=== PATIENT | male | born 2000 | race Caucasian/White ===

== ENCOUNTER 2024-03-02 16:50 | Inpatient (IN) | payer OTHER ==
[~2024-03-02] VITALS: Ht 172.7 cm; Wt 94.1 kg
[2024-03-02 18:07] LABS: HEMATOCRIT 43.8 % (42.0-52.0); HEMOGLOBIN 15.2 g/dl (13.5-17.5); MEAN CORPUSCULAR HEMOGLOBIN 32.5 pg (27.0-33.0); MEAN CORPUSCULAR HGB CONC 34.7 g/dl (32.0-36.5); MEAN CORPUSCULAR VOLUME 93.6 fl (80.0-96.0); PLATELET COUNT, AUTOMATED 271 10^3/uL (150-450); RED BLOOD COUNT 4.68 10^6/uL (4.30-6.10)
[2024-03-02 18:28] LABS: AMPHETAMINES LEVEL URINE NEGATIVE (NEGATIVE); BARBITURATES URINE NEGATIVE (NEGATIVE); BENZODIAZEPINES URINE NEGATIVE (NEGATIVE); CANNABINOIDS URINE NEGATIVE (NEGATIVE); COCAINE METABOLITE URINE NEGATIVE (NEGATIVE); METHADONE URINE NEGATIVE (NEGATIVE); OPIATES URINE NEGATIVE (NEGATIVE); PHENCYCLIDINE URINE NEGATIVE (NEGATIVE)
[2024-03-02 18:31] LABS: SALICYLATE LEVEL < 3.0 MG/DL (<30)
[2024-03-02 18:32] LABS: ALBUMIN 4.5 G/DL (3.2-5.2); ALKALINE PHOSPHATASE 61 U/L (46-116); ALT/SGPT 23 U/L (7.0-40); AST/SGOT 19 U/L (<34); BILIRUBIN,DIRECT 0.3 MG/DL (<0.4); BLOOD UREA NITROGEN 10 MG/DL (9-23); CALCIUM LEVEL 9.4 MG/DL (8.5-10.1); CARBON DIOXIDE LEVEL 27 MMOL/L (20-31); CHLORIDE LEVEL 107 MMOL/L (98-107); CREATININE FOR GFR 0.96 MG/DL (0.70-1.30); GLOMERULAR FILTRATION RATE > 60.0 (>60); GLUCOSE, FASTING 82 MG/DL (60-100); SODIUM LEVEL 141 MMOL/L (136-145)
[2024-03-02 18:33] LABS: THYROID STIMULATING HORMONE 0.931 uIU/ML (0.55-4.78)
[2024-03-02] MEDS ORDERED: HOME MED LIST COMPLETE! XX SCH (20:10)
[2024-03-03] MEDS ORDERED: ACETAMINOPHEN TAB 650MG DOSE (2X325MG) PO PRN (11:40)
[2024-03-03] MEDS ORDERED: MAALOX 30 ML SUSP *UDC PO PRN (11:40)
[2024-03-03] MEDS ORDERED: diphenhydrAMINE 25MG CAP PO PRN (11:40)
[2024-03-03] MEDS ORDERED: traZODone 50 MG TAB PO PRN (11:40)
[2024-03-03] MEDS ORDERED: IBUPROFEN 400MG TAB PO PRN (11:40)
[2024-03-03] MEDS ORDERED: MOM 30ML SUSPENSION UDC PO PRN (11:40)
[2024-03-03 13:12] VITALS: BP 140/68; TEMP 97.5; O2SAT 99
[2024-03-04 06:30] VITALS: BP 123/56; TEMP 97.8; O2SAT 98
[2024-03-04 16:04] VITALS: BP 124/70; TEMP 98.1; O2SAT 97
[2024-03-05 06:20] VITALS: BP 104/66; TEMP 97.8; O2SAT 97
[2024-03-05 15:51] VITALS: BP 115/56; TEMP 98.4; O2SAT 99
[2024-03-06 06:17] VITALS: BP 110/58; TEMP 98.3; O2SAT 98
[2024-03-06 18:30] VITALS: BP 128/67; TEMP 98.3; O2SAT 98
[2024-03-07 06:15] VITALS: BP 123/60; TEMP 98; O2SAT 99
== END 2024-03-07 11:25 | disposition home or self-care (01) | DRG 881 ==
LOC: M ED 16:50 → M ED INP 03-03 11:39 → M PSY 03-03 12:42
PROVIDERS: ADMIT Psychiatry & Neurology Child & Adolescent Psychiatry; ATTEND Psychiatry & Neurology Child & Adolescent Psychiatry
DX: F32.A Depression, unspecified (principal); R45.851 Suicidal ideations; F43.10 Post-traumatic stress disorder, unspecified; Z91.51 Personal history of suicidal behavior; Z91.52 Personal history of nonsuicidal self-harm; Z62.810 Personal history of physical and sexual abuse in childhood